=== PATIENT | female | born 1975 | race Two or more races ===

== ENCOUNTER 2024-12-19 09:04 | Emergency (ER) | payer BC, OTHER ==
[~2024-12-19] VITALS: Ht 152.4 cm; Wt 109.4 kg
--- NOTE | 2024-12-19 09:56 | ED.PDOC ---
History of Present Illness HPI Comments Ms. Bhandari is a 49-year-old female with prior medical history of hypertension and GERD, who presents today with chief complaint of abdominal pain. The patient states she underwent an umbilical hernia repair at [facility] on Wednesday (12/15/2024). She states she has since had progressively worsening stabbing/pressure like pain in the periumbilical region, non-radiating, 10/10 intensity, associated with redness and serosanguineous discharge, aggravated by trying to stand and relieved by laying flat. Refers she recently began having bowel movements again post surgery, but not back to her usual bowel habit. She denies nausea, vomiting, fever, purulent discharge, and wound dehiscence. States she has already finished her prescribed course of [place]. She reached out to PCP's office in [place] and was prescribed a course of oxycodone, with minimal relief. Due to persistence of symptoms, she presents today to the emergency room for evaluation. Chief Complaint: Abdominal Pain Time Seen by MD: 09:17 Allergies: Coded Allergies: Bupropion (Verified Allergy, Unknown, RASH, 12/19/24) Information Source: Patient Mode of Arrival: Wheelchair Severity: Moderate Timing: Days Duration: Since onset Past Medical History PAST MEDICAL HISTORY: GERD, HTN Surgical History: Cholecystectomy, Hernia Repair, Tonsillectomy Surgical History (Other): Gastric bypass, meniscus repair DOLL REPAIRER History: Denies all DOLL REPAIRER Hx Family History Family History: Family hx of DM Social History Smoker: Non-Smoker Alcohol: Denies ETOH Use Drugs: Denies Drug Use Lives In: Home Constitutional: denies: chills, diaphoresis, fatigue, fever, malaise, sweats, weakness, others EENTM: denies: blurred vision, double vision, ear bleeding, ear discharge, ear drainage, ear pain, ear ringing, eye pain, eye redness, hearing loss, mouth pain, mouth swelling, nasal discharge, nose bleeding, nose congestion, nose pain, photophobia, tearing, throat pain, throat swelling, voice changes, others Respiratory: denies: cough, hemoptysis, orthopnea, SOB at rest, shortness of breath, SOB with excertion, stridor, wheezing, others Cardiovascular: denies: chest pain, dizzy spells, diaphoresis, Dyspnea on exertion, edema, irregular heart beat, left arm pain, lightheadedness, palpitations, PND, syncope, others Gastrointestinal: reports: abdominal pain Genitourinary: denies: abnormal vagina bleeding, burning, dyspareunia, dysuria, flank pain, frequency, hematuria, incontinence, pain, , vagina discharge, urgency, others Neurological: denies: dizziness, fainting, headache, left sided numbness, left sided weakness, numbness, paresthesia, pre-existing deficit, right sided numbness, right sided weakness, seizure, speech problems, tingling, tremors, weakness, others Musculoskeletal: denies: back pain, gout, joint pain, joint swelling, muscle pain, muscle stiffness, neck pain, others Integumetry: reports: wounds (Refers redness and discharge from surgical incision ) Hematologic/Lymphatic: denies: anemia, blood clots, easy bleeding, easy bruising, swollen glands, others Endocrine: denies: excessive hunger, excessive sweating, excessive thirst, excessive urination, flushing, intolerance to cold, intolerance to heat, unexplained weight gain, unexplained weight loss, others Physical Exam General Appearance: Mild Distress, Obese HEENT: Normal ENT Inspection, PERRL/EOMI, Pharynx Normal Neck: Full Range of Motion, Non-Tender, Normal Inspection Respiratory: Chest Non-Tender, Lungs Clear, No Accessory Muscle Use, No Respiratory Distress, Normal Breath Sounds Cardiovascular: No Edema, No JVD, No Murmur, No Gallop, Normal Peripheral Pulses, Regular Rate/Rhythm Breast Exam: Deferred Gastrointestinal: No Organomegaly, Non Tender, No Pulsatile Mass, Normal Bowel Sounds, Other (Presence of horizontal surigical incision above umbilicius, approx 4 cm in length, clean, dry, approximated, without surrending redness or induration, no suppuration of any kind is observed at this time, not painful on palpation) Genitalia: Deferred Pelvic: Deferred Rectal: Deferred Extremities: No calf tenderness, Normal capillary refill, Normal inspection, Normal range of motion, Non-tender, No pedal edema Neurologic: No Motor Deficits, Normal Affect, Normal Mood, No Sensory Deficits Cerebellar Function: Normal Reflexes: Normal Skin: Lacerations (As described above ), Normal Color Lymphatic: No Adenopathy Was a procedure done? Was a procedure done?: No Differential Dx Considerations may include: Surgical site infection, abscess, appendicitis, acute gastroenteritis, colitis, enterocolitis X-Ray, Labs, Meds, VS Vital Signs Date Time Temp Pulse Resp B/P (MAP) Pulse Ox O2 Delivery O2 Flow Rate FiO2 12/19/24 16:04 97.9 76 18 128/91 (103) 96 97.9 12/19/24 15:37 98.1 66 16 126/84 (98) 99 98.1 12/19/24 13:21 98.0 65 16 128/82 (97) 100 98.0 12/19/24 12:07 98.0 68 16 128/82 (97) 100 98.0 12/19/24 10:08 Room Air* 0 21 12/19/24 10:04 66 18 121/85 (97) 93 12/19/24 10:04 66 18 93 Room Air 12/19/24 09:06 98.7 96 18 125/86 74 98.7 Lab Test 12/19/24 10:32 12/19/24 10:04 Range/Units Urine Color Light-yellow Yellow Urine Clarity Clear Clear Urine pH 5.5 5.0-9.0 Urine Specific [place] 1.016 1.001-1.035 Urine Protein Negative Negative Urine Ketones Negative Negative Urine Blood Negative Negative /uL Urine Nitrite Negative Negative Urine Bilirubin Negative Negative Urine Urobilinogen Normal Negative mg/dL Urine Leukocyte Esterase Negative Negative /uL Urine RBC 1 0 - 4 /hpf Urine Microscopic WBC 2 0-5 /HPF Urine Squamous Epithelial Cells Few <5 /hpf Urine Bacteria None seen None Seen /hpf Urine Glucose Normal Normal mg/dL Urine Test Negative Negative Urine Opiates Screen Neg NEGATIVE Urine Fentanyl Screen Neg NEGATIVE Urine Barbiturates Screen Neg NEGATIVE Urine Phencyclidine Screen Neg NEGATIVE Urine Amphetamines Screen Neg NEGATIVE Urine Benzodiazepines Screen Neg NEGATIVE Urine Cocaine Screen Neg NEGATIVE Urine Cannabinoids Screen Neg NEGATIVE White Blood Count 7.8 4.4-10.8 10^3/uL Red Blood Count 4.46 4.0-5.20 10^6/uL Hemoglobin 12.7 12.2-16.2 g/dL Hematocrit 37.6 36.0-46.0 % Mean Corpuscular Volume 84.3 80.0-100.0 fL Mean Corpuscular Hemoglobin 28.5 28.0-32.0 pg Mean Corpuscular Hemoglobin Concent 33.8 32.0-36.0 g/dL Red Cell Distribution Width 13.8 11.8-14.3 % Platelet Count 330 140-450 10^3/uL Mean Platelet Volume 7.7 6.9-10.8 fL Neutrophils (%) (Auto) 66.9 37.0-80.0 % Lymphocytes (%) (Auto) 20.1 10.0-50.0 % Monocytes (%) (Auto) 6.9 0.0-12.0 % Eosinophils (%) (Auto) 5.9 0.0-7.0 % Basophils (%) (Auto) 0.2 0.0-2.0 % Neutrophils # (Auto) 5.2 1.6-8.6 10 ^3/uL Lymphocytes # (Auto) 1.6 0.4-5.4 10 ^3/uL Monocytes # (Auto) 0.5 0-1.3 10 ^3/uL Eosinophils # (Auto) 0.5 0-0.8 10 ^3/uL Basophils # (Auto) 0 0-0.2 10 ^3/uL Nucleated Red Blood Cells 0.0 % Sodium Level 137 136-145 mmol/L Potassium Level 3.2 L 3.5-5.1 mmol/L Chloride Level 99 98-107 mmol/L Carbon Dioxide Level 29 20-31 mmol/L Anion Gap 9 5-15 Blood Urea Nitrogen 10 9-23 mg/dL Creatinine 0.76 0.550-1.02 mg/dL Glomerular Filtration Rate Calc 97 >90 mL/min BUN/Creatinine Ratio 13.2 10.0-20.0 Serum Glucose 92 74-106 mg/dL Calcium Level 8.5 L 8.7-10.4 mg/dL Total Bilirubin 0.4 0.2-1.0 mg/dL Aspartate Amino Transferase (AST) 117 H 13-40 U/L Alanine Aminotransferase (ALT) 144 H 7-40 U/L Alkaline Phosphatase 390 H 46-116 U/L Total Protein 6.7 5.7-8.2 g/dL Albumin 3.9 3.2-4.8 g/dL Lipase 27 12-53 U/L Time of 1ST Reevaluation: 11:30 Reevaluation 1ST: Unchanged Patient Education/Counseling: Diagnosis, Treatment Family Education/Counseling: Diagnosis, Treatment Comments The patient presented with chief complaint of increased abdominal after recent umbilical hernia repair at [facility]. On initial evaluation, the patient was well with stable vitals Physical exam was significant for pain on palpation of periumbilical region CBC was within normal range. CMP showed hypokalemia, which was repleted, and elevated liver function tests. AB/Pel CT with contrast shows presence of umbilical fluid and gas collection possibly correlating with a phelgmon or abscess in formation. The patient was given one dose of Zosyn at this institution and toradol was given to control pain She was transferred to [facility] for further evaluation and treatment. I personally spoke with Dr. Douglas for peer to peer prior to transfer. SEPSIS Sepsis Screen Date sepsis recognized/suspect: Dec 19, 2024 Time Sepsis recognized/suspect: 905 Recent Procedure: No On Antibiotic Therapy: No Respiratory Rate >20: No Heart Rate >90: No Temp<36 C (96.8 F) or >38.3 C: No SBP <90 or MAP <65 mmHG: No New Acute Mental Status Change: No Is the patient on CPAP, BIPAP,: No Physician Orders Ct Ab Pel With Iv Con Only (12/19/24 09:44) Imaging Transfer Request (12/19/24 13:12) Vital Signs Date Time Temp Pulse Resp B/P (MAP) Pulse Ox O2 Delivery O2 Flow Rate FiO2 12/19/24 16:04 97.9 76 18 128/91 (103) 96 97.9 12/19/24 15:37 98.1 66 16 126/84 (98) 99 98.1 12/19/24 13:21 98.0 65 16 128/82 (97) 100 98.0 12/19/24 12:07 98.0 68 16 128/82 (97) 100 98.0 12/19/24 10:08 Room Air* 0 21 12/19/24 10:04 66 18 121/85 (97) 93 12/19/24 10:04 66 18 93 Room Air 12/19/24 09:06 98.7 96 18 125/86 74 98.7 Laboratory Tests Test 12/19/24 10:04 White Blood Count 7.8 10^3/uL (4.4-10.8) Departure 1 Departure Time of Disposition: 15:30 Impression: Primary Impression: Postoperative abscess Disposition: 30 STILL A PATIENT Admit to: Med Surg Condition: Stable Critical Care Note Critical Care Time?: No Stability Stability form required: No LADD,[place] RESIDENT Dec 19, 2024 09:56
[2024-12-19 10:35] LABS: Hematocrit 37.6 % (36.0-46.0); Hemoglobin 12.7 g/dL (12.2-16.2); Mean Corpuscular Hemoglobin 28.5 pg (28.0-32.0); Mean Corpuscular Volume 84.3 fL (80.0-100.0); Nucleated Red Blood Cells % 0.0 %
[2024-12-19] MEDS: IOHEXOL 300 MG/ML 100ML BOTTLE IJ ONE (10:40)
[2024-12-19 10:51] LABS: Albumin 3.9 g/dL (3.2-4.8); Anion Gap 9 (5-15); BUN/Creatinine Ratio 13.2 (10.0-20.0); Blood Urea Nitrogen 10 mg/dL (9-23); Carbon Dioxide 29 mmol/L (20-31); Chloride 99 mmol/L (98-107); Glucose 92 mg/dL (74-106); Sodium 137 mmol/L (136-145); Total Protein 6.7 g/dL (5.7-8.2)
[2024-12-19 10:51] LABS: Urine Protein, UAD Negative (Negative)
[2024-12-19 10:52] LABS: Bilirubin, Total 0.4 mg/dL (0.2-1.0)
[2024-12-19 10:54] LABS: Alanine Aminotransferase 144 U/L (7-40); Alkaline Phosphatase 390 U/L (46-116); Calcium 8.5 mg/dL (8.7-10.4); Potassium 3.2 mmol/L (3.5-5.1)
[2024-12-19 11:02] LABS: Amphetamine Screen, Urine Neg (NEGATIVE); Barbiturate Scree,Urine Neg (NEGATIVE); Benzodiazephine Screen, Urine Neg (NEGATIVE); Cannabinoid Screen, Urine Neg (NEGATIVE); Cocaine Screen, Urine Neg (NEGATIVE); Opiate Scree,Urine Neg (NEGATIVE); Phencyclidine Screen, Urine Neg (NEGATIVE)
--- NOTE | 2024-12-19 11:51 | DVH ---
CLINICAL INFORMATION: Pain. Rule out abscess. TECHNIQUE: Axial CT images of the abdomen and pelvis were obtained after the uneventful administrati on of 100 mL Omnipaque 300 IV contrast. Coronal and sagittal reformatted images were obtained, review ed, and stored. All CT scans at this medical facility are performed using dose modulation techniques as appropriate to a performed exam including the following: Automated exposure control was utilized; adjustment of the MA and/or KV according to patient size; and use of iterative reconstruction techn[facility] ue. CTDIvol = 27.8 mGy DLP = 1583.95 mGy-cm COMPARISON: None FINDINGS: Lung bases: Mild tree-in-bud opacities in the right lower lobe, may be infectious or inflammatory in nature. Small to moderate hiatal hernia. Liver: Hepatic steatosis. Biliary: Cholecystectomy. Spleen: Unremarkable. Pancreas: Unremarkable. No inflammatory changes, ductal dilatation, or mass identified. Adrenal glands: Unremarkable. No mass. Kidneys: No hydronephrosis or mass. Aorta/Vascular: No aneurysm or significant calcification. Lymph Nodes: No mass or lymphadenopathy. Bowel/mesentery: Nonspecific nondilated fluid-filled small bowel loops. No small bowel obstruction. A ppendix is visualized and appears unremarkable. Scattered colonic diverticula without adjacent infla mmatory changes to suggest diverticulitis. No free air or free fluid in the abdomen or pelvis. Postsu rgical changes of gastric bypass. Pelvic organs: Uterus is anteverted. IUD within the fundal endometrial canal, in expected position. Bladder: Unremarkable. No mass. Abdominal wall: There is a collection containing fluid and gas at the umbilicus measuring up to 7.3 x 3.5 x 3.2 cm, possible phlegmon/developing abscess in the appropriate clinical setting. There are ar eas of peripheral enhancement associated with the collection, although not seen completely throughout the entire collection. Bones: No acute fracture or focal intraosseous lesion. IMPRESSION: 1. Collection containing fluid and gas at the umbilicus, possible phlegmon/developing abscess in the appropriate clinical setting. Correlate with clinical findings. Postoperative collection would also be included in the differential if the patient has had recent surgery. 2. Scattered colonic diverticula without adjacent inflammatory changes to suggest diverticulitis. 3. Mild tree-in-bud opacities in the right lower lobe, may be infectious or inflammatory in nature. 4. Small to moderate hiatal hernia. 5. Postsurgical changes as described above.
[2024-12-19] MEDS: POTASSIUM CHL 20 Meq TABLET PO ONE (11:55)
[2024-12-19] MEDS: PIPERACILLIN-TAZOB 3.375GM 100 ML IV ONE (12:17)
[2024-12-19] MEDS: KETOROLAC TROMETH 30 MG/ML 1ML VIAL IV ONE (12:17)
[2024-12-19 16:04] VITALS: BP 128/91; PULSE 76; RESP 18; TEMP 97.9; O2SAT 96
== END 2024-12-19 12:41 | disposition short-term general hospital (02) ==
LOC: ER 09:04
DX: T81.49XA Infection following a procedure, other surgical site, initial encounter (principal); I10 Essential (primary) hypertension; Z88.8 Allergy status to other drugs, medicaments and biological substances; Z90.49 Acquired absence of other specified parts of digestive tract; Z90.89 Acquired absence of other organs; Z98.84 Bariatric surgery status; Z98.890 Other specified postprocedural states; Z79.899 Other long term (current) drug therapy; Y92.89 Other specified places as the place of occurrence of the external cause
CPT/HCPCS: 36415; 74177; 80053; 80307; 81001; 81025; 83690; 85025; 96365; 96375; 99285; J1885; J2543; Q9967